=== PATIENT | female | born 1960 | race Caucasian/White ===

== ENCOUNTER 2022-05-23 09:17 | Observation (INO) ==
--- NOTE | 2022-04-06 16:16 | PAT Medication Instructions ---
Medication Instructions Date of Service April 06, 2022 Home Medications Medication Instructions Recorded oxybutynin chloride 5 mg tablet 5 mg PO BID #180 tabs 01/19/21 ipratropium bromide 17 2 puff inhalation QID PRN 01/17/22 mcg/actuation HFA aerosol inhaler shortness of breath or wheezing (Atrovent HFA) #38.7 grams pantoprazole 40 mg tablet,delayed 40 mg PO QPM #90 tabs 03/20/22 release cetirizine 10 mg tablet 10 mg PO QAM meclizine 25 mg tablet 25 mg PO TID PRN Vertigo oxybutynin chloride 5 mg tablet 5 mg PO BID cholecalciferol (vitamin D3) 25 mcg (1,000 unit) tablet 2,000 unit PO QAM multivitamin (Multiple Vitamins tablet) 1 tab PO QAM nystatin-triamcinolone 100,000 unit/g-0.1 % topical cream 1 applic topical BID PRN Rash celecoxib 200 mg capsule 200 mg PO BID ipratropium bromide 17 mcg/actuation HFA aerosol inhaler (Atrovent HFA) 2 puff inhalation QID PRN shortness of breath or wheezing pantoprazole 40 mg tablet,delayed release 40 mg PO QPM acetaminophen 500 mg tablet 1,000 mg PO Q6H PRN Pain estradiol 0.01% (0.1 mg/gram) vaginal cream 1 g vaginal 2XWK sertraline 50 mg tablet 25 mg PO HS tramadol 50 mg tablet 25 - 50 mg PO Q6H PRN Pain ASK your surgeon for instructions celecoxib 200 mg capsule 200 mg PO BID STOP taking 24 hours before surgery nystatin-triamcinolone 100,000 unit/g-0.1 % topical cream 1 applic topical BID PRN Rash estradiol 0.01% (0.1 mg/gram) vaginal cream 1 g vaginal 2XWK DO NOT take the morning of surgery cetirizine 10 mg tablet 10 mg PO QAM oxybutynin chloride 5 mg tablet 5 mg PO BID cholecalciferol (vitamin D3) 25 mcg (1,000 unit) tablet 2,000 unit PO QAM multivitamin (Multiple Vitamins tablet) 1 tab PO QAM Take morning of surgery With a small sip of water, OTHERWISE NOTHING TO EAT OR DRINK AFTER MIDNIGHT: meclizine 25 mg tablet 25 mg PO TID PRN Vertigo (if needed) ipratropium bromide 17 mcg/actuation HFA aerosol inhaler (Atrovent HFA) 2 puff inhalation QID PRN shortness of breath or wheezing (if needed) acetaminophen 500 mg tablet 1,000 mg PO Q6H PRN Pain (if needed) tramadol 50 mg tablet 25 - 50 mg PO Q6H PRN Pain (if needed) Take evening before surgery meclizine 25 mg tablet 25 mg PO TID PRN Vertigo (if needed) oxybutynin chloride 5 mg tablet 5 mg PO BID ipratropium bromide 17 mcg/actuation HFA aerosol inhaler (Atrovent HFA) 2 puff inhalation QID PRN shortness of breath or wheezing (if needed) pantoprazole 40 mg tablet,delayed release 40 mg PO QPM acetaminophen 500 mg tablet 1,000 mg PO Q6H PRN Pain (if needed) sertraline 50 mg tablet 25 mg PO HS tramadol 50 mg tablet 25 - 50 mg PO Q6H PRN Pain (if needed) Other Notes If you have any questions please call us at [phone] or [phone] or [phone] or [phone]
--- NOTE | 2022-04-14 15:25 | Anesthesiology Consultation ---
Date of Service April 14, 2022 Assessment & Plan (1) Encounter for pre-operative examination: - Outpatient joint assessment: Patient is currently scheduled for inpatient pathway. If re-evaluated pending system levels during current pandemic/surgeon requests outpatient pathway, patient is not acceptable candidate due to inadequate home support at this time. She was advised to contact clinic if she has additional home support options/will review respiratory conditions with anesthesiologist. Chart Review Chart Review: Acceptable Risk for Surgery and Patient seen in Pre Admission Testing Teaching & Discussion Pre-Anesthesia Teaching/Discussion Notes: Instructed NPO after midnight before surgery, except medications with 15 cc of water. Medication instructions provided according to the PAT guidelines. History Surgery Operation Date: 05/23/22 09:25 Proposed Procedures p Left Total Knee Arthroplasty - Dexter Ricardo DO Height/Weight Height: 5 ft 6 in Weight: 119 kg Allergies Allergy/AdvReac Type Severity Reaction Status Date / Time bupropion [From Zyban] Allergy Intermediate hives Verified 04/06/22 10:49 cephalexin [From Keflex] Allergy Intermediate rash Verified 04/06/22 10:49 Medications Home Medications Medication Instructions Recorded Confirmed Last Taken cetirizine 10 mg tablet 10 mg PO QAM 01/19/21 04/06/22 04/14/21 08:00 meclizine 25 mg tablet 25 mg PO TID PRN Vertigo 01/19/21 04/06/22 Unknown oxybutynin chloride 5 mg tablet 5 mg PO BID #180 tabs 01/19/21 04/06/22 04/15/21 06:30 cholecalciferol (vitamin D3) 25 2,000 unit PO QAM 01/20/21 04/06/22 04/14/21 08:00 mcg (1,000 unit) tablet multivitamin (Multiple Vitamins 1 tab PO QAM 02/23/21 04/06/22 04/14/21 08:00 tablet) nystatin-triamcinolone 100,000 1 applic topical BID PRN Rash 03/29/21 04/06/22 04/14/21 20:00 unit/g-0.1 % topical cream celecoxib 200 mg capsule 200 mg PO BID 01/16/22 04/06/22 Unknown ipratropium bromide 17 2 puff inhalation QID PRN 01/17/22 04/06/22 Unknown mcg/actuation HFA aerosol inhaler shortness of breath or wheezing (Atrovent HFA) #38.7 grams pantoprazole 40 mg tablet,delayed 40 mg PO QPM #90 tabs 03/20/22 04/06/22 Unknown release acetaminophen 500 mg tablet 1,000 mg PO Q6H PRN Pain 04/06/22 04/06/22 Unknown estradiol 0.01% (0.1 mg/gram) 1 g vaginal 2XWK 04/06/22 04/06/22 Unknown vaginal cream sertraline 50 mg tablet 25 mg PO HS 04/06/22 04/06/22 Unknown tramadol 50 mg tablet 25 - 50 mg PO Q6H PRN Pain 04/06/22 04/06/22 Unknown Past Medical History Medical History (Updated 04/14/22 @ 15:38 by Michelle Garrido PA-C) Chronic obstructive pulmonary disease Stable, rescue inhaler use every morning which is not new per pt Depression with anxiety Per records, pt denies GERD (gastroesophageal reflux disease) Controlled, stable per pt HLD (hyperlipidemia) No meds Morbid obesity CARLOS on CPAP Compliant Overactive bladder Prediabetes hgba1c 02/04/21 was 5.3% Patient denies h/o stroke, seizures, heart attack, heart failure, HTN, blood clots or blood transfusions. Exercise / Class Metabolic Activity II 4-5 Yardwork/Stairs/Walk up hill (SOB with 1 FOS chronic per pt without change or worsening; denies chest discomfort) Past Family History Family History Mother Dementia Father Heart disease Myocardial infarction Lung disease Stroke Sister Ovarian cancer Daughter Family history of reaction to anesthesia PONV Denies family history of Prostate cancer Breast cancer Colorectal cancer Past Surgical History Surgical History (Updated 04/14/22 @ 15:20 by Michelle Garrido PA-C) H/O breast surgery Right breast (cyst drainage) H/O colonoscopy 01/2022 History of esophagogastroduodenoscopy (EGD) History of hysteroscopy 04/15/21: LMA#4. History of open reduction and internal fixation (ORIF) procedure Right ankle x2/metal removal Hx of appendectomy Hx of cholecystectomy Hx of cystoscopy Hx of hysterectomy 09/2021 Past Anesthesia History No Hx of Anesthesia Complications and No Family Hx of Anesthesia Complications History of PONV No Hx of Motion Sickness and History of PONV (denies needing scop patch) Social History Smoking Status: Former smoker Do You Dip or Chew Tobacco: No Smoking End Date: QUIT 15 YRS AGO Hx Alcohol Use: Yes Alcohol type: wine alcohol intake frequency: a few times a week Hx Substance Use: No Review of Systems Patient denies chest pain, fever, chills, cough or palpitations. Physical Exam Vital Signs Vitals BP 132/80 P 77 TEMP 98.6 SP02 96% on RA RESP 18 Physical Full cervical extension range of motion without pain TMD 3.5 finger breadths Mallampati Score 2 Dentition: intact, caps front teeth; denies chipped or loose teeth, implants or bridges Lungs: normal respiratory effort. Clear throughout to auscultation, no adventitious breath sounds Cardiac: regular rate and rhythm, no murmurs noted Carotid arteries: negative bruit bilat Lab Results Anesthesia Preop Results Results Anesthesia Widget: WBC 5.26 K/ul (4.8-10.8) 04/14/22 Hgb 11.6 g/dl (12.0-16.0) L 04/14/22 Hct 35.2 % (34.1-44.9) 04/14/22 Plt 204 K/uL (130-400) 04/14/22 Na 138 mmol/L (136-145) 04/14/22 K 3.7 mmol/L (3.5-5.1) 04/14/22 Cl 105 mmol/L (98-107) 04/14/22 CO2 25 mmol/L (21-32) 04/14/22 BUN 15 mg/dl (6-23) 04/14/22 Creat 0.76 mg/dl (0.6-1.2) 04/14/22 Glucose Level 121 mg/dl (70-99(Fasting)) H 04/14/22 PT 10.3 Seconds (9.0-12.0) 04/14/22 PTT 28.7 Seconds (21.0-31.0) 04/14/22 INR 1.0 (0.9-1.1) 04/14/22 Urine Color Yellow 04/14/22 Urine Appearance Clear (Clear) 04/14/22 Urine pH 6.0 (4.5-7.5) 04/14/22 Urine Specific [place] 1.004 (1.000-1.030) 04/14/22 Urine Protein Negative (Negative) 04/14/22 Urine Glucose (UA) Negative (Negative) 04/14/22 Urine Ketones Negative (Negative) 04/14/22 Urine Blood Negative (Negative) 04/14/22 Urine Nitrite Negative (Negative) 04/14/22 Urine Bilirubin Negative (Negative) 04/14/22 Urine Urobilinogen Negative (Negative) 04/14/22 Urine Leukocyte Esterase Negative (Negative) 04/14/22 Blood Type O Positive 04/14/22 Antibody Screen NEGATIVE 04/14/22 Testing Electrocardiogram Date: 04/14/22 NSR, rate 75 bpm Chest X-Ray Date: 04/14/22 No acute chest disease Other Testing CT chest 08/10/21 Multiple clustered micronodules in the anteromedial basal left lower lobe, new from the 07/23/2020 exam, likely indicating a mild/subclinical bronchiolitis. In the new ill-defined ground-glass opacity in the lateral basal LLL likely also inflammatory in nature. 3 mm calcified granuloma noted in the RLL. Upper lung zone predominant mild emphysematous changes Mild coronary artery atherosclerotic calcifications. Old right rib fracture deformity COVID-19 Risk Screen Screening Information COVID-19 Screen Date: 04/14/22 Exposure 21 Days Family/Household +COVID Last 21 Days: No Exposure 10 Days Any COVID Exposure Last 10 Days: No Symptoms Last 10 Days Experienced COVID Sx Last 10 Days: No + COVID 0-90 Days COVID + in Last 0-90 Days: No Risk Plan COVID Risk Plan: No Risk Identified (To surgeon's discretion if preop COVID testing needed.)
--- NOTE | 2022-05-05 15:24 | History & Physical Report ---
Date of Service May 05, 2022 date of surgery: 05/23/22 Procedure: Left Total Knee Arthroplasty Surgeon: Dexter Ricardo Assessment & Plan (1) Arthritis of knee, left: Plan: Risks and benefits of procedure discussed in detail today, patient would like to proceed with a left total knee replacement at [facility] as scheduled. will obtain medical clearance from Dr Shin prior to surgery as well as obtain PATs at [facility]. Will place on ASA 81mg po bid x 1 month post op, f/u 2 weeks post op for routine post-operative care and x-ray, sooner if having any problems. will make arrangements for HHPT at the time of discharge. At this point in time, has failed conservative measures and would like to proceed with surgical intervention. The risks and benefits have been discussed including, but not limited to, risk of infection, nerve injury, stiffness, loss of motion, failure to improve, etc. Reasonable outcomes and options of treatment were discussed. An explanation of appropriate alternatives to the procedure that may be advantageous were discussed and their risks and benefits, as well as the risks and benefits of not proceeding with treatment. I offered to answer any additional inquiries concerning the treatment involved. All the patient's questions were answered. The patient is agreeable, understanding of the treatment plan and alternatives, and wishes to proceed with the treatment plan. History of Present Illness Chief Complaint: left knee pain Primary Care Provider: Fe Shin DO Jojo is a 61 year old female who complains of left knee pain, presents for pre-op evaluation prior to a left total knee replacement by Dr Ricardo at [facility]. she complains of pain, crepitus, decreased range of motion, instability and stiffness in her left knee. Currently the patient states that the symptoms are moderate-severe, rated as 7/10. The pain is described as aching, sharp and throbbing. The symptoms occur continuously. The symptoms are aggravated by ascending stairs, daily activities, first steps while awake walking. Prior NSAIDs include IBU, celebrex and Aleve. she has been treated with previous cortisone and visco injections in the past without much relief. Allergies Allergy/AdvReac Type Severity Reaction Status Date / Time bupropion [From Zyban] Allergy Intermediate hives Verified 05/05/22 13:16 cephalexin [From Keflex] Allergy Intermediate rash Verified 05/05/22 13:16 Home Medications Medication Instructions Recorded Confirmed Type cetirizine 10 mg tablet 10 mg PO QAM 01/19/21 05/05/22 History meclizine 25 mg tablet 25 mg PO TID PRN Vertigo 01/19/21 05/05/22 History oxybutynin chloride 5 mg tablet 5 mg PO BID #180 tabs 01/19/21 05/05/22 Rx cholecalciferol (vitamin D3) 25 2,000 unit PO QAM 01/20/21 05/05/22 History mcg (1,000 unit) tablet multivitamin (Multiple Vitamins 1 tab PO QAM 02/23/21 05/05/22 History tablet) nystatin-triamcinolone 100,000 1 applic topical BID PRN Rash 03/29/21 05/05/22 History unit/g-0.1 % topical cream celecoxib 200 mg capsule 200 mg PO BID 01/16/22 05/05/22 History ipratropium bromide 17 2 puff inhalation QID PRN 01/17/22 05/05/22 Rx mcg/actuation HFA aerosol inhaler shortness of breath or wheezing (Atrovent HFA) #38.7 grams pantoprazole 40 mg tablet,delayed 40 mg PO QPM #90 tabs 03/20/22 05/05/22 Rx release acetaminophen 500 mg tablet 1,000 mg PO Q6H PRN Pain 04/06/22 05/05/22 History estradiol 0.01% (0.1 mg/gram) 1 g vaginal 2XWK 04/06/22 05/05/22 History vaginal cream sertraline 50 mg tablet 25 mg PO HS 04/06/22 05/05/22 History tramadol 50 mg tablet 25 - 50 mg PO Q6H PRN Pain 04/06/22 05/05/22 History Past Med/Surg History Medical History Chronic obstructive pulmonary disease Stable, rescue inhaler use every morning which is not new per pt Depression with anxiety Per records, pt denies GERD (gastroesophageal reflux disease) Controlled, stable per pt HLD (hyperlipidemia) No meds Morbid obesity CARLOS on CPAP Compliant Overactive bladder Prediabetes hgba1c 02/04/21 was 5.3% Surgical History H/O breast surgery Right breast (cyst drainage) H/O colonoscopy 01/2022 History of esophagogastroduodenoscopy (EGD) History of hysteroscopy 04/15/21: LMA#4. History of open reduction and internal fixation (ORIF) procedure Right ankle x2/metal removal Hx of appendectomy Hx of cholecystectomy Hx of cystoscopy Hx of hysterectomy 09/2021 Family History Mother Dementia Father Heart disease Myocardial infarction Lung disease Stroke Sister Ovarian cancer Daughter Family history of reaction to anesthesia PONV Denies family history of Prostate cancer Breast cancer Colorectal cancer Social History Smoking Status: Former smoker Tobacco Type: Cigarettes packs per day: 1; Years Smoked: 30; Second Hand Exposure: Yes ( A CHILD); Hx Alcohol Use: Yes Alcohol type: wine Alcohol Intake Frequency: 2-4 x/Month Hx Substance Use: No Preferred Language: Tongan Communication Ability: Effective Visual Impairment: No Limitations Hearing Ability: Normal Checker/Stocker Required: No Beliefs That Will Affect Care: None marital status: Current Living Situation: Spouse current occupational status: employed current occupation: garden center manager-OFFICE WORK Feels Safe at Home: Yes Childhood Exposure to Second-Hand Smoke: Yes Dental Care, Regularly: Yes Sunscreen Use: Yes Assistive Devices: Brace/Splint/Immobilizer, Cane and Glasses Review of Systems Review of Systems: All systems reviewed & are unremarkable except as noted in HPI & below Constitutional: no fever, no chills and no sweats Respiratory: no cough and no dyspnea Cardiovascular: no chest pain, no dyspnea and no orthopnea Gastrointestinal: no abdominal pain, no nausea and no vomiting Musculoskeletal: as per Subjective / HPI Physical Exam Physical Exam: HT: 5ft 6in WT: 119kg Constitutional: WD/WN, vitals as above no acute distress Respiratory: normal respiratory effort, lungs clear to auscultation no respiratory distress, no labored breathing and does not use accessory muscles Cardiovascular: RRR, no murmur, no edema Gastrointestinal (Abdomen): normal bowel sounds, soft, nontender, no hepatosplenomegaly Musculoskeletal: Knee: + knee abnormal to inspection (LEFT KNEE), + effusion (+1 effusion), + limited ROM of knee (ROM 0/3/110), + knee ROM with crepitation, + joint line tenderness (medial joint line) and + Quiana's sign positive; no deformity, no skin erythema, no ecchymosis, no valgus laxity, no varus laxity, anterior drawer test negative, Marti's sign negative and pivot shift test negative Results & Data Results & Data ([facility]) Diagnostic Findings Left Knee X-ray: left knee series confirm advanced degenerative changes to the left knee, greatest medial compartments and patellofemoral joint, showing joint space narrowing, osteophyte formation and subchondral sclerosis. no acute bony pathology noted.
[~2022-05-23 09:17] MED LIST: ACETAMINOPHEN 500 MG TAB PO SCH; BUPIVACAINE 0.5 % 5 MG/1 ML PF 10ML VIAL ONE; CeleBREX 200 MG CAP PO SCH; EPINEPHrine INJ 1 MG/ML AMP ONE; FAMOTIDINE 20 MG TAB PO SCH; GABAPENTIN 600 MG DOSE PO SCH; LR 500ML BOLUS, THEN 15ML/HR IV SCH; METOCLOPRAMIDE HCL 10 MG TABLET PO SCH; ROPIVACAINE 0.5% 5 MG/ML 30 ML VIAL ONE; ROPIVACAINE 0.5% HCL/PF 150 MG, BUPIVACAINE 0.75% MPF 20 ML, EPINEPHrine 30MG/30ML (OR ... INSTIL SCH; TRANEXAMIC ACID 1,000 MG **IV Intra-op IV SCH; TRANEXAMIC ACID 1,000 MG **IV Pre-op IV SCH; VANCOMYCIN HCL 1,750 MG in SODIUM CHLORIDE 0.9% 500 ML IV SCH; dexAMETHasone 4 MG TAB PO SCH
[2022-05-23] MEDS ORDERED: HYDROmorphone INJ 1 MG/ML SYRINGE IV PRN (09:39)
[2022-05-23] MEDS ORDERED: ATROPINE SULFATE 0.1 MG/ML 10ML SYR IV PRN (09:39)
[2022-05-23] MEDS ORDERED: MEPERIDINE HCL 25 MG/ML CARP/VIAL IV PRN (09:39)
[2022-05-23] MEDS ORDERED: PHENYLEPHRINE 100MCG/ML 5ML SYR IV PRN (09:39)
[2022-05-23] MEDS ORDERED: fentaNYL citrate 100 MCG/2 ML VIAL IV PRN (09:39)
[2022-05-23] MEDS ORDERED: ONDANSETRON INJ 2 MG/ML 2 ML VIAL IV PRN ×2 (09:39→16:43)
[2022-05-23] MEDS ORDERED: ePHEDrine sulfate 50 MG/ML AMP IV PRN (09:39)
[2022-05-23] MEDS ORDERED: LABETALOL HCL IV 5 MG/ML 20ML IV PRN (09:39)
[2022-05-23] MEDS ORDERED: KETAMINE 50 MG/5 ML SYRINGE ONE (10:05)
[2022-05-23] MEDS ORDERED: MIDAZOLAM HCL 1 MG/ML 2ML VIAL ONE ×2 (10:05→12:36)
[2022-05-23] MEDS ORDERED: LIDOCAINE 2% 2 ML VIAL/AMP(20MG/ML) INFIL ONE (10:07)
[2022-05-23] MEDS ORDERED: ONDANSETRON INJ 2 MG/ML 2 ML VIAL ONE (10:07)
[2022-05-23] MEDS ORDERED: GLYCOPYRROLATE 0.2 MG/ML VIAL ONE (10:07)
[2022-05-23] MEDS ORDERED: KETOROLAC 30 MG/ML VIAL ONE (10:07)
[2022-05-23] MEDS ORDERED: DEXAMETHASONE SOD INJ 4 MG/ML VIAL ONE (10:07)
[2022-05-23] MEDS ORDERED: PROPOFOL IV EMULSION 10 MG/ML 20 ML VIAL IV ONE (10:07)
--- NOTE | 2022-05-23 10:49 | History & Physical Bridge Note ---
Date of Service May 23, 2022 History & Physical Bridge Note I have examined the patient, reviewed the History & Physical and in the interval since the performance of the History & Physical I have noted the following changes of clinical significance: no changes noted
[2022-05-23] MEDS ORDERED: ORTHO JOINT ANESTHETIC ONE (11:22)
[2022-05-23] MEDS ORDERED: fentaNYL citrate 100 MCG/2 ML VIAL ONE (12:36)
--- NOTE | 2022-05-23 14:15 | Operative Report ---
Post Operative Report Pre & Post Diagnosis Operation Date: 05/23/22 11:45 Pre-Op Diagnosis: Arthritis of left knee Post-Op Diagnosis: Arthritis of left knee I identified the patient and participated in the time-out.: Yes Procedure Operation Date: 05/23/22 11:45 Actual Procedures p Left Total Knee Arthroplasty(Left utilizing Hodge & Neph journey 2 patient matched total knee arthroplasty size femur 3 tibia 3 polyeleven patella 29 oval- Dexter Ricardo DO Surgeon Dexter Ricardo DO [employer] Salesperson Deep LORENZO Estimated Blood Loss 5 Findings Consistent with Post-Op Diagnosis Patient presents with severe end-stage tricompartment compartmental DJD no response to conservative management patient has eburnated [id number] marginal osteophyte subchondral cystic changes moderate to large effusion Specimens Bone and cartilage Drains Medium bore Hemovac Anesthesia Type MAC Spinal Regional Complications none Disposition Accompanied Patient To Recovery: No Disposition: Recovery Room Indications Patient resents with severe end-stage tricompartmental DJD left knee no response to conservative management and physical therapy anti-inflammatories relative rest activity modification patient presents for total knee arthroplasty Description of Procedure After proper prepping and draping of the left lower extremity anterior midline incision was made over the region of the extensor extensor mechanism after meticulous hemostasis was obtained and maintained in subcutaneous tissues a medial parapatellar incision was made The patella was subluxed lateralward the medial lateral gutter were cleaned from any hypertrophic synovitis and scar tissue of the distal femoral block was placed and the distal femoral osteotomy cut was made subsequently the chamfers anterior and posterior osteotomy cuts were made utilizing the 4-in-1 block the tibia was subsequently subluxed anteriorward medial and ateral meniscal remnants were excised in their entirety remnants of the anterior and posterior cruciate ligaments were excised in their entirety excellent exposure of the proximal tibia was obtained the tibial osteotomy guide was placed on the proximal tibial osteotomy cut was made once again the knee was irrigated with copious amounts of sterile saline solution the patella was subsequently everted lateralward thickened scar tissue around the patella was removed the patella was subsequently cut utilizing a freehand technique and was drilled prepared for final preparation and placement of patella socially flexion-extension gaps were checked and the equal and symmetric trials were placed to the appropriate femoral and tibial trials with poly-spacer being placed for equal flexion and extension gaps and full range of motion including extension to 0 and flexion to 140 the trial components after having been taken to recovery range of motion was subsequently removed meticulous hemostasis was obtained and maintained subsequently a knee block injection of joint cocktail including ropivacaine 0.5% 150 mg. Bupivacaine 0.5% epinephrine 1-200,030 mL's toradol 30 mg dexamethasone 4 mg ketamine 10 mg clonidine 100 micrograms normal saline solution 30 mg was infiltrated into the soft tissues of the posterior knee medial lateral gutters and periosteal synovium special attention was paid to protect neurovascular structures at all times subsequently trial components having been removed the knee was irrigated with sterile saline solution. debris was removed the proximal tibia was subsequently prepared and was made ready for the placement of the tibial component tibial component was also cemented and tamped into position the femoral component was subsequently placed and cemented in the position the patellar component was subsequently cemented in position because hemostasis once again obtained and maintained wound having been thoroughly irrigated with debridement and debridement lavage was performed as well as a medial parapatellar incision closed with #1 Vicryl in interrupted fashion subcutaneous was closed with #2 Vicryl skin was closed with skin clips. PA-C was necessary for prepping and drapping as well as wound closure of deep fascia Sub cutaneous tissue and skin and was necessary for the case. A sterile compressive dressing was placed patient was taken to recovery in stable condition of report dictated by Davion I attest to the content of the Intraoperative Record and any orders documented therein. Any exceptions are noted below.Due to the complex nature of the procedure, the entire surgery was performed with the operational assistance of Deep LORENZO. The contact center assistant, under direct supervision, was involved in the actual performance of all aspects of the surgical procedure including hemostasis, tissue retraction and incision, instrument management, patient positioning, and wound closure. I attest to the content of the Intraoperative Record and any orders documented therein. Any exceptions are noted below.
--- NOTE | 2022-05-23 15:30 | XRay Report ---
TWO VIEWS LEFT KNEE CLINICAL HISTORY: Postoperative examination. FINDINGS: AP and crosstable lateral portable views of the left knee are obtained. A left knee arthrop lasty is in near anatomic alignment. There has been undersurface remodeling of the patella. No acute fracture is seen. There are expected postoperative changes around the knee including a surgical drai n, soft tissue edema, and subcutaneous gas. IMPRESSION: Expected postoperative changes status post left knee arthroplasty. No acute fracture is s een. ACT 112: Negative or not required by law. Electronically signed by: Sánchez Lopez M.D. 05/23/2022 3:29 PM
[2022-05-23] MEDS ORDERED: MECLIZINE HCL 25 MG TAB PO PRN (16:43)
[2022-05-23] MEDS ORDERED: IPRATROPIUM BROMIDE HFA INHALER INH PRN (16:43)
[2022-05-23] MEDS ORDERED: diphenhydrAMINE 50 MG/ML VIAL IV PRN (16:43)
[2022-05-23] MEDS ORDERED: VANCOMYCIN CONSULT ACTIVE PRN (16:43)
[2022-05-23] MEDS ORDERED: HYDROmorphone INJ 0.5 MG/0.5 ML SYR IV PRN (16:43)
[2022-05-23] MEDS ORDERED: MAGNESIUM HYDROXIDE SUSP 30 ML UDC PO PRN (16:43)
[2022-05-23] MEDS ORDERED: bisacodyL 10 MG SUPP PR PRN (16:43)
[2022-05-23] MEDS ORDERED: NALOXONE HCL 0.4 MG/1 ML VIAL/CARP IV PRN (16:43)
--- NOTE | 2022-05-23 17:12 | Anesthesiology Progress Note ---
Date of Service May 23, 2022 Anesthesia Post Procedure Vital Signs Vital Signs: Temp Pulse Resp BP Pulse Ox O2 Del Method O2 Flow Rate 05/23/22 16:46 Room Air 05/23/22 16:46 36.9 C 78 18 119/78 94 Room Air 05/23/22 16:20 76 17 118/66 93 Room Air 05/23/22 16:10 36.4 C L 77 12 107/61 96 Oxymask 5 05/23/22 16:00 73 14 106/69 97 Oxymask 5 05/23/22 15:50 36.3 C L 71 14 110/70 96 Oxymask 5 05/23/22 15:40 67 16 106/65 97 Oxymask 5 05/23/22 15:30 71 13 96/68 L 95 Oxymask 5 05/23/22 15:20 72 13 97/59 L 96 Oxymask 5 05/23/22 15:10 79 12 91/60 L 96 Oxymask 5 05/23/22 15:03 36.6 C 79 13 97/52 L 96 Oxymask 5 05/23/22 10:04 37.2 C 75 20 121/61 95 Room Air 05/23/22 10:04 Room Air Pain Intensity Bilateral Lower Back: Pain Intensity: 6 Transfer of Care Handoff Completed per policy Notes Mental Status: alert / awake / arousable and participated in evaluation Patient Amnestic to Procedure: Yes Nausea / Vomiting: adequately controlled Pain: adequately controlled Airway Patency, RR, SpO2: stable & adequate BP & HR: stable & adequate Hydration State: stable & adequate Anesthetic Complications: no major complications apparent
[2022-05-23] MEDS: SODIUM CHLORIDE 0.9% 1000ML 1,000 ML IV SCH (17:27)
[2022-05-23] MEDS ORDERED: SENNA 8.6 MG TAB PO SCH (21:00)
[2022-05-23] MEDS ORDERED: PANTOprazole 40 MG TAB PO SCH (21:00)
[2022-05-23] MEDS ORDERED: SERTRALINE HCL 50 MG TABLET PO SCH (21:00)
[2022-05-23] MEDS: oxyCODONE HCL IR 5 MG TAB (IMMEDIATE RELEASE) PO PRN (21:27)
[2022-05-23] MEDS: CeleBREX 200 MG CAP PO SCH (21:28)
[2022-05-23] MEDS: OXYBUTYNIN CHLORIDE 5 MG TAB PO SCH (21:29)
[2022-05-23] MEDS: DOCUSATE SODIUM 100 MG CAP PO SCH (21:30)
[2022-05-23] MEDS: ASPIRIN 81 MG ECTAB PO SCH (21:31)
[2022-05-23] MEDS ORDERED: VANCOMYCIN HCL 1,750 MG in SODIUM CHLORIDE 0.9% 500 ML IV SCH (22:00)
[2022-05-23] MEDS: ACETAMINOPHEN 500 MG TAB PO SCH (22:25)
[2022-05-24] MEDS: oxyCODONE HCL IR 5 MG TAB (IMMEDIATE RELEASE) PO PRN (01:43)
[2022-05-24] MEDS: SODIUM CHLORIDE 0.9% 1000ML 1,000 ML IV SCH (04:45)
[2022-05-24] MEDS: ACETAMINOPHEN 500 MG TAB PO SCH (05:25)
[2022-05-24 07:17] LABS: Hematocrit (blood only) 30.3 % (34.1-44.9); Mean Corpuscular Hemoglobin 31.3 pg (25.0-34.0); Mean Corpuscular Volume 94.7 fL (80.0-100.0); Mean Platelet Volume 8.8 fL (9.4-12.3); Platelet Count 183 K/uL (130-400); RDW Coefficient of Variation 14.4 % (11.5-14.5); RDW Standard Deviation 49.9 fL (36.4-46.3); White Blood Count 11.39 K/ul (4.8-10.8)
[2022-05-24 07:39] LABS: BUN Creatinine Ratio 20.6 (10-20); Creatinine Clr Calc Pharmacy 113.9 ml/min; Est GFR (African American) 109.4 ml/min; Est GFR (Non-African American) 94.4 ml/min; Potassium 4.5 mmol/L (3.5-5.1)
[2022-05-24] MEDS: ASPIRIN 81 MG ECTAB PO SCH (08:38)
[2022-05-24] MEDS: CeleBREX 200 MG CAP PO SCH (08:38)
[2022-05-24] MEDS: OXYBUTYNIN CHLORIDE 5 MG TAB PO SCH (08:39)
[2022-05-24] MEDS: DOCUSATE SODIUM 100 MG CAP PO SCH (08:39)
[2022-05-24] MEDS ORDERED: CHOLECALCIFEROL 1,000 UNITS 25 MCG TAB PO SCH (09:00)
[2022-05-24] MEDS ORDERED: CETIRIZINE HCL 10 MG TABLET PO SCH (09:00)
[2022-05-24] MEDS ORDERED: NON-FORMULARY MEDICATION (Multivitamin [Multiple Vitamins] tablet) PO SCH (09:00)
[2022-05-24] MEDS ORDERED: MULTIVITAMIN TAB PO SCH (09:00)
--- NOTE | 2022-05-24 09:07 | Hospitalist Consultation ---
Date of Consultation May 24, 2022 Assessment & Plan (1) Arthritis of knee, left: POD#1 s/p LEFT total knee with Dr Ricardo on 05/23 WBC elevation likely 2nd to steroids h/h11.6/35.2--> 06/04, acute blood loss anemia from surgery and dilutional from IVF Pain management/bowel regimen/PT/OT per primary service DVT prophylaxis per primary service with ASA 81mg BID ordered Planning for d/c later today. Thank you for allowing hospitalist service participate in the care of Ms Verduzco. Will sign off. Please call with any questions/concerns. (2) Encounter for pre-operative examination: (3) Prediabetes: A1c 5.3, no recent values Rec outpt f/u PCP (4) Depression with anxiety: Continue zoloft (5) GERD (gastroesophageal reflux disease): continue PPI History of Present Illness Reason for Consultation: medical management Requesting Physician: Dr Ricardo Attending Physician: Dexter Ricardo, DO History of Present Illness 61yo female with PMHx pre-DM, HLD, GERD, COPD, CARLOS, overactive bladder presented for LEFT total knee with Dr Ricardo on 05/23 Doing well, pain controlled with ordered medications. Worked with therapy this morning and planning for discharge later today. Allergies Allergy/AdvReac Type Severity Reaction Status Date / Time bupropion [From Zyban] Allergy Intermediate hives Verified 05/23/22 09:58 cephalexin [From Keflex] Allergy Intermediate rash Verified 05/23/22 09:58 Home Medications Medication Instructions Recorded Confirmed Type cetirizine 10 mg tablet 10 mg PO QAM 01/19/21 05/23/22 History meclizine 25 mg tablet 25 mg PO TID PRN Vertigo 01/19/21 05/23/22 History oxybutynin chloride 5 mg tablet 5 mg PO BID #180 tabs 01/19/21 05/23/22 Rx cholecalciferol (vitamin D3) 25 2,000 unit PO QAM 01/20/21 05/23/22 History mcg (1,000 unit) tablet multivitamin (Multiple Vitamins 1 tab PO QAM 02/23/21 05/23/22 History tablet) nystatin-triamcinolone 100,000 1 applic topical BID PRN Rash 03/29/21 05/23/22 History unit/g-0.1 % topical cream celecoxib 200 mg capsule 200 mg PO BID 01/16/22 05/23/22 History ipratropium bromide 17 2 puff inhalation QID PRN 01/17/22 05/23/22 Rx mcg/actuation HFA aerosol inhaler shortness of breath or wheezing (Atrovent HFA) #38.7 grams pantoprazole 40 mg tablet,delayed 40 mg PO QPM #90 tabs 03/20/22 05/23/22 Rx release acetaminophen 500 mg tablet 1,000 mg PO Q6H PRN Pain 04/06/22 05/23/22 History estradiol 0.01% (0.1 mg/gram) 1 g vaginal 2XWK 04/06/22 05/23/22 History vaginal cream sertraline 50 mg tablet 25 mg PO HS 04/06/22 05/23/22 History tramadol 50 mg tablet 25 - 50 mg PO Q6H PRN Pain 04/06/22 05/23/22 History fluconazole 150 mg tablet 150 mg PO ONCE #2 tabs 05/17/22 05/23/22 Rx (Diflucan) sulfamethoxazole 800 1 tab PO BID 10 days #20 tabs 05/17/22 05/23/22 Rx mg-trimethoprim 160 mg tablet (Bactrim DS) acetaminophen 500 mg tablet 1,000 mg PO Q8 14 days #84 tabs 05/24/22 Rx (Tylenol Extra Strength) aspirin 81 mg tablet,delayed 81 mg PO BID 30 days #60 tabs 05/24/22 Rx release oxycodone 5 mg tablet 5 mg PO Q4H PRN pain #30 tabs 05/24/22 Rx polyethylene glycol 3350 17 gram 17 g PO DAILY PRN constipation #5 05/24/22 Rx oral powder packet (Miralax) ea sulfamethoxazole 800 1 tab PO Q12H #14 tabs 05/24/22 Rx mg-trimethoprim 160 mg tablet (Bactrim DS) Patient History Medical History Chronic obstructive pulmonary disease Stable, rescue inhaler use every morning which is not new per pt Depression with anxiety Per records, pt denies GERD (gastroesophageal reflux disease) Controlled, stable per pt HLD (hyperlipidemia) No meds Morbid obesity CARLOS on CPAP Compliant Overactive bladder Prediabetes hgba1c 02/04/21 was 5.3% Surgical History H/O breast surgery Right breast (cyst drainage) H/O colonoscopy 01/2022 History of esophagogastroduodenoscopy (EGD) History of hysteroscopy 04/15/21: LMA#4. History of open reduction and internal fixation (ORIF) procedure Right ankle x2/metal removal Hx of appendectomy Hx of cholecystectomy Hx of cystoscopy Hx of hysterectomy 09/2021 Family History Mother Dementia Father Heart disease Myocardial infarction Lung disease Stroke Sister Ovarian cancer Daughter Family history of reaction to anesthesia PONV Denies family history of Prostate cancer Breast cancer Colorectal cancer Social History Smoking Status: Former smoker Tobacco Type: Cigarettes packs per day: 1; Years Smoked: 30; Smoking End Date: QUIT 15 YRS AGO; Second Hand Exposure: Yes ( A CHILD); Do You Dip or Chew Tobacco: No; Hx Alcohol Use: Yes Alcohol type: wine Alcohol Intake Frequency: 2-4 x/Month Hx Substance Use: No Preferred Language: French Communication Ability: Effective Visual Impairment: No Limitations Hearing Ability: Normal Gem Setter Required: No Beliefs That Will Affect Care: None marital status: Current Living Situation: Spouse current occupational status: employed current occupation: commercial collections specialist Other Information That Helps Us Care for You: No Feels Safe at Home: Yes Safety Concerns: Feels Safe At This Time Childhood Exposure to Second-Hand Smoke: Yes Dental Care, Regularly: Yes Sunscreen Use: Yes Assistive Devices: Brace/Splint/Immobilizer, Cane and Glasses Assistive Devices Comment: CAPS FRONT UPPER/CANE OR BRACE PRN Review of Systems Review of Systems: All systems reviewed & are unremarkable except as noted in HPI & below Physical Exam Physical Exam: General: WD/WN female sitting up in chair NAD HEENT: head normocephalic, atraumatic, mmm, trachea midline Resp: CTAB, no w/c/r, on room air CV: RRR, no m/r/g, no calf tenderness, cap refill wnl, pulses palpable GI: +BS, soft, nontender no mayo MSK/Neuro: no focal deficit, moves all extremities, follows commands, DRISS wrap and hemovac drainage noted, bloody, NVI Psych: AOx3, pleasant and cooperative Results & Data Results & Data ([facility]) Vital Signs (Past 12 Hours) Vital Signs Temp Pulse Resp BP Pulse Ox O2 Del Method 05/24/22 07:43 36.6 C 69 17 108/66 93 Room Air 05/24/22 03:49 36.8 C 65 20 110/71 92 CPAP 05/24/22 00:22 36.6 C 74 20 112/70 93 CPAP Laboratory Results 05/24/22 05/24/22 Range/Units 06:53 06:53 WBC 11.39 H (4.8-10.8) K/ul RBC 3.20 L (3.93-5.22) M/uL Hgb 10.0 L (12.0-16.0) g/dl Hct 30.3 L (34.1-44.9) % MCV 94.7 (80.0-100.0) fL MCH 31.3 (25.0-34.0) pg MCHC 33.0 (32.0-36.0) g/dL RDW Std Deviation 49.9 H (36.4-46.3) fL RDW Coeff of Mary 14.4 (11.5-14.5) % Plt Count 183 (130-400) K/uL MPV 8.8 L (9.4-12.3) fL Sodium 136 (136-145) mmol/L Potassium 4.5 (3.5-5.1) mmol/L Chloride 107 (98-107) mmol/L Carbon Dioxide 27 (21-32) mmol/L Anion Gap 2 L (3-11) BUN 14 (6-23) mg/dl Creatinine 0.68 (0.6-1.2) mg/dl Est Cr Clr Drug Dosing 113.9 ml/min Est GFR ( Amer) 109.4 ml/min Est GFR (Non-Af Amer) 94.4 ml/min BUN/Creatinine Ratio 20.6 H (10-20) Glucose 149 H (70-99(Fasting)) mg/dl Calcium 8.0 L (8.5-10.1) mg/dl Diagnostic Findings Knee X-Ray 05/23/22 15:14 TWO VIEWS LEFT KNEE CLINICAL HISTORY: Postoperative examination. FINDINGS: AP and crosstable lateral portable views of the left knee are obtained. A left knee arthroplasty is in near anatomic alignment. There has been undersurface remodeling of the patella. No acute fracture is seen. There are expected postoperative changes around the knee including a surgical drain, soft tissue edema, and subcutaneous gas. IMPRESSION: Expected postoperative changes status post left knee arthroplasty. No acute fracture is seen. ACT 112: Negative or not required by law. Electronically signed by: Sánchez Lopez M.D. 05/23/2022 3:29 PM PG Care Time/CCT Total # of Minutes Spent Total Time Spent with Patient: Total time spent is greater than 50% in coordination of care (as documented) at patient's floor/unit and/or counseling patient: Coding Level of Care Code 73003 Office/OBS Consult Lvl 2 Diagnoses Arthritis of knee, left M17.12 Encounter for pre-operative examination Z01.818 Prediabetes R73.03 Depression with anxiety F41.8 GERD (gastroesophageal reflux disease) K21.9
--- NOTE | 2022-05-24 14:48 | Orthopedic Progress Note ---
Date of Service May 24, 2022 Assessment & Plan (1) Arthritis of knee, left: Plan: POD 1 s/p Left TKA PT/OT protocols. WBAT. DVT prophylaxis - ASA po bid, SCD's, TAVIA's Pain management as written. DC planning - services upon dc. Pt progressed well with PT. Plan for dc to home today. Admission and Anticipated Discharge Date Admission Date: May 23, 2022 Subjective POD 1 Pt sitting up in bed awake, alert. No complaints. Pain controlled. Physical Exam Physical Exam: Dressings are C/D/I. Calves are soft,Nt. NV intact. Toes mobile. Results & Data ([facility]) Vital Signs (Past 12 Hours) Vital Signs Temp Pulse Resp BP Pulse Ox O2 Del Method 05/24/22 13:43 36.5 C 71 18 118/70 94 05/24/22 10:59 36.5 C 71 18 118/70 94 Room Air 05/24/22 07:43 36.6 C 69 17 108/66 93 Room Air 05/24/22 03:49 36.8 C 65 20 110/71 92 CPAP Laboratory Results Laboratory Results WBC 11.39 K/ul (4.8-10.8) H 05/24/22 06:53 RBC 3.20 M/uL (3.93-5.22) L 05/24/22 06:53 Hgb 10.0 g/dl (12.0-16.0) L 05/24/22 06:53 Hct 30.3 % (34.1-44.9) L 05/24/22 06:53 MCV 94.7 fL (80.0-100.0) 05/24/22 06:53 MCH 31.3 pg (25.0-34.0) 05/24/22 06:53 MCHC 33.0 g/dL (32.0-36.0) 05/24/22 06:53 RDW Std Deviation 49.9 fL (36.4-46.3) H 05/24/22 06:53 RDW Coeff of Mary 14.4 % (11.5-14.5) 05/24/22 06:53 Plt Count 183 K/uL (130-400) 05/24/22 06:53 MPV 8.8 fL (9.4-12.3) L 05/24/22 06:53 Sodium 136 mmol/L (136-145) 05/24/22 06:53 Potassium 4.5 mmol/L (3.5-5.1) 05/24/22 06:53 Chloride 107 mmol/L (98-107) 05/24/22 06:53 Carbon Dioxide 27 mmol/L (21-32) 05/24/22 06:53 Anion Gap 2 (3-11) L 05/24/22 06:53 BUN 14 mg/dl (6-23) 05/24/22 06:53 Creatinine 0.68 mg/dl (0.6-1.2) 05/24/22 06:53 Est Cr Clr Drug Dosing 113.9 ml/min 05/24/22 06:53 Est GFR ( Amer) 109.4 ml/min 05/24/22 06:53 Est GFR (Non-Af Amer) 94.4 ml/min 05/24/22 06:53 BUN/Creatinine Ratio 20.6 (10-20) H 05/24/22 06:53 Glucose 149 mg/dl (70-99(Fasting)) H 05/24/22 06:53 Calcium 8.0 mg/dl (8.5-10.1) L 05/24/22 06:53 SARS-CoV-2, RNA, NAAT NEGATIVE (NEGATIVE) 05/23/22 09:15 Impressions Knee X-Ray 05/23/22 15:14 TWO VIEWS LEFT KNEE CLINICAL HISTORY: Postoperative examination. FINDINGS: AP and crosstable lateral portable views of the left knee are obtai margy. A left knee arthroplasty is in near anatomic alignment. There has been undersurface remodeling of the patella. No acute fracture is seen. There are expected postoperative changes around the knee including a surgical drain, soft tissue edema, and subcutaneous gas. IMPRESSION: Expected postoperative changes status post left knee arthroplasty. No acute fracture is seen. ACT 112: Negative or not required by law. Electronically signed by: Sánchez Lopez M.D. 05/23/2022 3:29 PM
--- NOTE | 2022-05-24 14:56 | Discharge Summary ---
Date of Service May 24, 2022 Admission HPI Per Admitting Provider Jojo is a 61 year old female who complains of left knee pain, presents for pre-op evaluation prior to a left total knee replacement by Dr Ricardo at [facility]. she complains of pain, crepitus, decreased range of motion, instability and stiffness in her left knee. Currently the patient states that the symptoms are moderate-severe, rated as 7/10. The pain is described as aching, sharp and throbbing. The symptoms occur continuously. The symptoms are aggravated by ascending stairs, daily activities, first steps while awake walking. Prior NSAIDs include IBU, celebrex and Aleve. she has been treated with previous cortisone and visco injections in the past without much relief. Admission Exam Per Admitting Provider Physical Exam: HT: 5ft 6in WT: 119kg Constitutional: WD/WN, vitals as above no acute distress Respiratory: normal respiratory effort, lungs clear to auscultation no respiratory distress, no labored breathing and does not use accessory muscles Cardiovascular: RRR, no murmur, no edema Gastrointestinal (Abdomen): normal bowel sounds, soft, nontender, no hepatosplenomegaly Musculoskeletal: Knee: + knee abnormal to inspection (LEFT KNEE), + effusion (+1 effusion), + limited ROM of knee (ROM 0/3/110), + knee ROM with crepitation, + joint line tenderness (medial joint line) and + Quiana's sign positive; no deformity, no skin erythema, no ecchymosis, no valgus laxity, no varus laxity, anterior drawer test negative, Marti's sign negative and pivot shift test negative Principal Diagnosis Left Knee Osteoarthritis Discharge Data Allergies Allergy/AdvReac Type Severity Reaction Status Date / Time bupropion [From Zyban] Allergy Intermediate hives Verified 05/23/22 09:58 cephalexin [From Keflex] Allergy Intermediate rash Verified 05/23/22 09:58 Consultations 05/19/22 11:33 Consult Hospitalist Routine Procedures Performed Operation Date: 05/23/22 11:45 Actual Procedures p Left Total Knee Arthroplasty(Left) - Dexter Ricardo DO Ordered Studies 05/23/22 05:00 US - OR guided needle placemen Routine Hospital Course (1) Arthritis of knee, left: Patient:JOJO BARRON Admit Date:05/23/22 MR#:[id number] Att Phy:Dexter Ricardo D.O. Acct ID:[id number] Kamilla Phy:Fe Shin DO Date:1960 Fam Phy: Age:61 Location:3E Sex:F Room/Bed:[facility] cc: ~ *NOTICE TO RECEIVING DEMOCRAT/AGENCY This information is strictly Confidential and protected under [place] law. [place] law prohibits you from making any further disclosure of this information unless further disclosure is expressly permitted by the written consent of the person to whom it pertains or is authorized by law. A general authorization for the release of medical or other information is not sufficient for this purpose. Hospital accepts no responsibility if the information is made available to any other person, INCLUDING THE PATIENT. Date of Service May 24, 2022 Assessment & Plan (1) Arthritis of knee, left: Plan: POD 1 s/p Left TKA PT/OT protocols. WBAT. DVT prophylaxis - ASA po bid, SCD's, TAVIA's Pain management as written. DC planning - services upon dc. Pt progressed well with PT. Plan for dc to home today. Admission and Anticipated Discharge Date Admission Date: May 23, 2022 Subjective POD 1 Pt sitting up in bed awake, alert. No complaints. Pain controlled. Physical Exam Physical Exam: Dressings are C/D/I. Calves are soft,Nt. NV intact. Toes mobile. Results & Data ([facility]) Vital Signs (Past 12 Hours) Vital Signs Temp Pulse Resp BP Pulse Ox O2 Del Method 05/24/22 13:43 36.5 C 71 18 118/70 94 05/24/22 10:59 36.5 C 71 18 118/70 94 Room Air 05/24/22 07:43 36.6 C 69 17 108/66 93 Room Air 05/24/22 03:49 36.8 C 65 20 110/71 92 CPAP Laboratory Results Laboratory Results WBC 11.39 K/ul (4.8-10.8) H 05/24/22 06:53 RBC 3.20 M/uL (3.93-5.22) L 05/24/22 06:53 Hgb 10.0 g/dl (12.0-16.0) L 05/24/22 06:53 Hct 30.3 % (34.1-44.9) L 05/24/22 06:53 MCV 94.7 fL (80.0-100.0) 05/24/22 06:53 MCH 31.3 pg (25.0-34.0) 05/24/22 06:53 MCHC 33.0 g/dL (32.0-36.0) 05/24/22 06:53 RDW Std Deviation 49.9 fL (36.4-46.3) H 05/24/22 06:53 RDW Coeff of Mary 14.4 % (11.5-14.5) 05/24/22 06:53 Plt Count 183 K/uL (130-400) 05/24/22 06:53 MPV 8.8 fL (9.4-12.3) L 05/24/22 06:53 Sodium 136 mmol/L (136-145) 05/24/22 06:53 Potassium 4.5 mmol/L (3.5-5.1) 05/24/22 06:53 Chloride 107 mmol/L (98-107) 05/24/22 06:53 Carbon Dioxide 27 mmol/L (21-32) 05/24/22 06:53 Anion Gap 2 (3-11) L 05/24/22 06:53 BUN 14 mg/dl (6-23) 05/24/22 06:53 Creatinine 0.68 mg/dl (0.6-1.2) 05/24/22 06:53 Est Cr Clr Drug Dosing 113.9 ml/min 05/24/22 06:53 Est GFR ( Amer) 109.4 ml/min 05/24/22 06:53 Est GFR (Non-Af Amer) 94.4 ml/min 05/24/22 06:53 BUN/Creatinine Ratio 20.6 (10-20) H 05/24/22 06:53 Glucose 149 mg/dl (70-99(Fasting)) H 05/24/22 06:53 Calcium 8.0 mg/dl (8.5-10.1) L 05/24/22 06:53 SARS-CoV-2, RNA, NAAT NEGATIVE (NEGATIVE) 05/23/22 09:15 Impressions Knee X-Ray 05/23/22 15:14 TWO VIEWS LEFT KNEE CLINICAL HISTORY: Postoperative examination. FINDINGS: AP and crosstable lateral portable views of the left knee are obtained. A left knee arthroplasty is in near anatomic alignment. There has been undersurface remodeling of the patella. No acute fracture is seen. There are expected postoperative changes around the knee including a surgical drain, soft tissue edema, and subcutaneous gas. IMPRESSION: Expected postoperative changes status post left knee arthroplasty. No acute fracture is seen. ACT 112: Negative or not required by law. Electronically signed by: Sánchez Lopez M.D. 05/23/2022 3:29 PM Total Time Total Time Spent Total Time Spent (In Minutes): 5 Discharge Plan Discharge Items Patient Disposition: Home - Home Health Services Reason For Visit: Tricompartment Osteoarthritis of Left Knee Discharge Diagnosis: Osteoarthritis left knee Activity: Per Instructions section Weightbearing: Left weightbearing Weightbearing Comment: As tolerated with walker Non-emergency contact: Surgeon Call non-emergency contact if: you have any medication questions, your pain is not controlled, your temperature is above 101.5, your wound has increased redness and your wound has increased drainage Follow-up/Referrals: Fe Shin DO [Primary Care Provider] - 05/30/22 8:30 am Dexter Ricardo DO [Surgeon] - (Follow-up with Dr. Ricardo in 2 weeks from the day of your surgery for your first postoperative visit.) Diet: Regular Addtl Attending Provider Instructions: ACTIVITY RECOMMENDATIONS: SELF CARE INSTRUCTIONS AFTER TOTAL KNEE REPLACEMENT A. You may need to continue a physical therapy program after discharge from the hospital. There are several options available to you. Your doctor will assist you in selecting the best one for you. 1. An out-patient facility 2 to 3 times a week for therapy or home therapy. 2. Continue working on all exercises taught to you in the hospital. Your goals should be to increase bending of your knee to 90 degrees and beyond and to fully straighten your knee. B. You may progress at your own pace from walking with a walker or crutches to a cane; then to no assistive devices. C. Make walking a part of your daily routine. Be up as much as comfortable with rest periods throughout the day. Rest with leg elevation is very important. Use the ice wrap frequently for the first 3-4 weeks. D. There are no restrictions on activities. You may ride in a car, shop, participate in rn embedded and all social activities. E. Wear the long elastic stockings (TAVIA hose) 20 hours a day for 2 weeks after surgery. They can be removed several times a day for laundering and for a bath. F. You may shower, no tub baths until cleared by your doctor. SPECIAL CARE INSTRUCTIONS: VERY IMPORTANT TO READ AND REVIEW A. There are a few signs you need to watch for after you are home. Call [facility] if you notice any of the followin. Increased severe knee pain. Some pain is expected especially when you exercise. 2. Increased swelling in your leg or knee; pain or swelling of the calf muscle in either lower leg. 3. Any fluid drainage from the incision. 4. Shortness of breath or chest pain. B. Please call [facility] at if you have any concerns or questions about your operation or recovery. The doctor or his nurse will return your call promptly. C. You must take antibiotics before dental work, bladder, bowel or other surgery. Your doctor will provide you with a permanent care to carry describing this precaution. IMPORTANT: * REMEMBER TO TAKE ASPIRIN, 81 MG, TWICE DAILY FOR 4 WEEKS UNLESS OTHERWISE DIRECTED. THIS IS YOUR BLOOD THINNER. * HIGH RISK PATIENTS MAY BE PRESCRIBED A STRONGER BLOOD THINNER. THIS WILL BE PROVIDED AT DISCHARGE. * CALL IF INCREASED PAIN, REDNESS, DRAINAGE OR FEVER GREATER THAT 101. * WEAR TAVIA HOSE 20 HOURS PER DAY FOR 2 WEEKS. * CHYNA Dressing - This is a large suction dressing covering your incision. This will help pull any excess drainage from the wound and allow your incision to heal properly. You may shower with this if you can keep the unit outside of the shower. If any bleeding or leakage is noted please call your doctor's office. This will remain on your incision for 7 days and then should be removed. This can be done yourself or by the home nursing staff if applicable. The entire unit is disposable once removed. Once removed, keep incision clean and dry. If redness or drainage is noted, please call your surgeon. . After Chyna DC'd, follow below * DERMABOND Prineo- This is a mesh tape dressing that is covered with glue. It should remain in place until the incision is properly healed, usually 10-14 days. This dressing is designed to naturally slough off. You may trim the excess mesh tape as it peels off. Incision may be briefly wet in a shower. Dry immediately by blotting with a clean, dry towel. Do not bath or swim until instructed by your doctor. Do not scratch, rub, or pick at the dressing. Do not apply any topical ointments or lotions until dressing is completely removed and/or instructed by your doctor. There may be a small piece of suture material at one end of your incision. Do not pull or trim this. If it is bothersome or catching on clothing, you may cover it with a band-aid. FOLLOW UP VISIT: If appointment is not already scheduled: Please call [facility] to make a follow-up appointment for 2 weeks after your surgery at . Pending Studies at Discharge: No Stand-Alone Forms: [facility] [employer], Smoking Cessation Medications and DC Order Prescriptions: New acetaminophen [Tylenol Extra Strength] 500 mg Tablet 1,000 mg PO Q8 14 Days Qty: 84 0RF aspirin 81 mg Tablet,Delayed Release (Dr/Ec) 81 mg PO BID 30 Days Qty: 60 0RF polyethylene glycol 3350 [Miralax] 17 gram powder in packet 17 g PO DAILY PRN (Reason: constipation) Qty: 5 0RF sulfamethoxazole-trimethoprim [Bactrim DS] 800-160 mg tablet 1 tab PO Q12H Qty: 14 0RF oxycodone 5 mg tablet 5 mg PO Q4H MDD 6 PRN (Reason: pain) Qty: 30 0RF Continued pantoprazole 40 mg tablet,delayed release (DR/EC) 40 mg PO QPM Qty: 90 3RF oxybutynin chloride 5 mg tablet 5 mg PO BID Qty: 180 3RF cetirizine 10 mg tablet 10 mg PO QAM meclizine 25 mg tablet 25 mg PO TID PRN (Reason: Vertigo) cholecalciferol (vitamin D3) 25 mcg (1,000 unit) tablet 2,000 unit PO QAM multivitamin [Multiple Vitamins] Tablet 1 tab PO QAM celecoxib 200 mg capsule 200 mg PO BID Atrovent HFA 17 mcg/actuation HFA aerosol inhaler 2 puff inhalation QID PRN (Reason: shortness of breath or wheezing) Qty: 38.7 2RF Rx Instructions: 90 DAY SUPPLY sulfamethoxazole-trimethoprim [Bactrim DS] 800-160 mg tablet 1 tab PO BID 10 Days Qty: 20 0RF fluconazole [Diflucan] 150 mg tablet 150 mg PO ONCE Qty: 2 0RF Rx Instructions: May repeat dose x 1 in one week if not better nystatin-triamcinolone 100,000-0.1 unit/g-% cream 1 applic topical BID PRN (Reason: Rash) sertraline 50 mg tablet 25 mg PO HS estradiol 0.01 % (0.1 mg/gram) cream 1 g vaginal 2XWK Rx Instructions: Use daily for 14 days, then 2-3 times per week thereafter. Discontinued tramadol 50 mg Tablet 25 - 50 mg PO Q6H PRN (Reason: Pain) acetaminophen [Tylenol Ex Str Rapid Release] 500 mg Tablet 1,000 mg PO Q6H PRN (Reason: Pain) Discharge Orders: Discharge Order (Routine); Ordered 05/24/22 Ordered By: Deep Cleaning Admission Data Admit Date/Time: 05/23/22 15:14 Attending Provider: Dexter Ricardo Admit Provider: Dexter Ricardo Primary Care Provider: Fe Shin Other Providers: Flavio Wiggins ; Dexter Skinner ; [facility] Healthcare Other Interventions: Discharge Summary Assessment (RN) Last Done: 05/24/22 13:43
== END 2022-05-24 14:05 | disposition home health service (06) ==
LOC: ASU 09:17 → 3E 09:17